=== PATIENT | female | born 1995 | race Caucasian/White ===

== ENCOUNTER 2016-10-30 23:55 | Outpatient (CLI) | payer SELFPAY ==
[~2016-10-30] VITALS: Ht 167.6 cm; Wt 101.2 kg
[2016-10-31 00:36] VITALS: Ht 167.6 cm; Wt 101.2 kg
[2016-10-31 00:38] VITALS: BP 115/62; PULSE 97; RESP 20
[2016-10-31] MEDS ORDERED: FERR325C PO (00:42)
[2016-10-31] MEDS ORDERED: PRENAT PO (00:42)
--- NOTE | 2016-10-31 02:02 | RADRPT ---
PROCEDURE: US OB. CLINICAL INDICATION: Cramping abdominal pain. patient. TECHNIQUE: Multiple sonographic images of the pelvis were obtained. Transvaginal scanning was also performed to evaluate length of the cervix. The images were reviewed on a PACS workstation. COMPARISON: No prior studies are available for comparison. FINDINGS: The cervix is closed with a length of 5.9 cm. There is a single viable intrauterine gestation. Cardiac activity is present with 156 beats per min quileute. There is a breech presentation. Measurements were made in order to determine age. The results are as follows: BPD =6.32 cm. HC =23.3 cm. AC =22.2 cm. FL =4.8 cm. Estimated gestational age of approximately 26 weeks and 0 days. The estimated date of delivery is 02/06/2017. The EFW = 920 g (2 pounds) . Anatomic survey was not performed. The placenta is fundal and grade 1. There is no evidence for an abruption or placenta previa. There is a normal amount of amniotic fluid with an VISH = 11.5. IMPRESSION: Single viable intrauterine gestation of approximately 26 weeks. The estimated date of delivery is 1 . RPTAT: [facility] Physician Kieran Date Time Electronically viewed and signed by Physician Kieran on 10/31/2016 02:02 CHUY/
[2016-10-31 02:16] LABS: ADD SCAN DIFF NO
[2016-10-31 02:18] LABS: BASOPHILS % 0.3 % (0.0-2.0); EOSINOPHILS # 0.1 10^3/ul (0.0-0.5); EOSINOPHILS % 0.8 % (0.0-7.0); HEMATOCRIT 26.5 % (37.0-47.0); HEMOGLOBIN 8.5 g/dl (12.0-16.0); LYMPHOCYTES % 18.9 % (15.0-51.0); MEAN CORPUSCULAR HEMOGLOBIN 25.2 pg (29.0-33.0); MEAN CORPUSCULAR HGB CONC 32.1 g/dl (32.0-37.0); MEAN CORPUSCULAR VOLUME 78.6 fl (82.0-101.0); MEAN PLATELET VOLUME 10.6 fl (7.4-10.4); MONOCYTES % 9.3 % (0.0-11.0); NEUTROPHIL # 7.4 10^3/ul (1.6-7.5); NEUTROPHILS % 70.1 % (39.0-77.0); PLATELET COUNT 271 10^3/UL (140-415); RED BLOOD COUNT 3.37 10^6/ul (4.20-5.40); RED CELL DISTRIBUTION WIDTH 14.3 % (11.5-14.5); WHITE BLOOD COUNT 10.5 10^3/ul (4.8-10.8)
[2016-10-31 02:40] LABS: ADD UMIC YES; UR ASCORBIC ACID NEGATIVE (NEGATIVE); UR BILIRUBIN (Dip) NEGATIVE (NEGATIVE); UR BLOOD (Dip) 1+ mg/dL (NEGATIVE); UR CLARITY CLEAR (CLEAR); UR COLOR COLORLESS (YELLOW); UR GLUCOSE (Dip) NEGATIVE (NEGATIVE); UR KETONES (Dip) NEGATIVE (NEGATIVE); UR LEUKOCYTE ESTERASE (Dip) NEGATIVE Leu/ul (NEGATIVE); UR NITRITE (Dip) NEGATIVE (NEGATIVE); UR RBC 0 /HPF (0-5); UR SPECIFIC GRAVITY (Dip) 1.002 (1.003-1.030); UR TOTAL PROTEIN (Dip) NEGATIVE (NEGATIVE); UR UROBILINOGEN (Dip) NEGATIVE (NEGATIVE)
[2016-10-31 03:05] LABS: BARBITURATES Negative (NEGATIVE); BENZODIAZEPINES Negative (NEGATIVE); CANNABINOIDS Negative (NEGATIVE); COCAINE Negative (NEGATIVE); OPIATES Negative (NEGATIVE)
--- NOTE | 2016-10-31 04:54 | QN ---
Documentation Comment 21 y/o at 22 weeks with c/o low back pain. Patient denies nausea, vomiting , leakage of fluid or vaginal bleeding. Afebrile VSS Abdomen soft NT Strip Appropriate for GA OB sono normal U/A negative WBC normal After rest, patient feels better. Stable D/C home. JONHNY HOWARD MD Oct 31, 2016 04:54
--- NOTE | 2016-10-31 05:52 | TRIAGE ---
OB Triage Datetime Report Generated by CPN: 10/31/2016 05:52 Datetime: 10/31/2016 04:39 Stage of : OB Triage Datetime: 10/31/2016 04:26 Stage of : OB Triage Datetime: 10/31/2016 04:14 Stage of : OB Triage Datetime: 10/31/2016 02:13 Labor Evaluation Frequency: 0 Monitor Mode: External Resting Tone [place]: Relaxed Heart Rate FHR Baseline Rate: 145 Monitor Mode: External US Variability: Moderate 6-25 bpm Accelerations: 10X10 Comments: Appropriate for ga Pain Assessment Pain Scale: 5 Pain Presence: Intermittent Pain Type: Cramping Pain Location: Back Pain Goal: 0 Pain Relief Measures: Comfort Measures Datetime: 10/31/2016 01:05 Stage of : OB Triage Labor Evaluation Frequency: 0 Monitor Mode: External Resting Tone [place]: Relaxed Heart Rate FHR Baseline Rate: 150 Monitor Mode: External US Variability: Moderate 6-25 bpm Accelerations: 10X10 Decelerations: Variable Comments: Appropriate for ga Datetime: 10/31/2016 00:46 Stage of : OB Triage Datetime: 10/31/2016 00:25 Time of Arrival: 10/31/2016 23:58 EGA: 25.5 Arrived By: Stretcher; Ambulance Arrived From: Home Chief Complaint: pressure, back pain, anxiety Movement: Present Contractions: Irregular Time Contractions Began: 10/31/2016 22:00 Rupture of Membranes: Denies Vaginal Bleeding: None Vaginal Discharge: Denies Recent Sexual Intercouse: Yes Abdominal Trauma: Not Applicable Patient Complaints: Cramping; Back Pain Provider Notified: delshad Initial Plan: VS, EFM, CBC, UA, UTOX, EFW, CL, VISH Datetime: 10/31/2016 00:24 Assessment Type: Triage Maternal Assessment Level of Consciousness: Fully Conscious DTR's/Clonus: DTRs 2+; No Clonus Headache: Denies Blurred Vision: No Respiratory Effort: Unlabored Breath Sounds, Left: Clear and Equal Breath Sounds, Right: Clear and Equal Nausea/Vomiting: Hx of Nausea/Vomiting (Annotations: vomiting x 1 this am) RUQ Epigastric Pain: Denies Lower Extremities Edema: None Degree: None Upper Extremities Edema: None Degree: None Facial Edema: None Fall Risk Assessment History of Falling: (0) No Secondary Diagnosis: (0) No Ambulatory Aid: (0) Bedrest/Nurse Assist IV Therapy: (0) No Gait: (0) Normal/Bedrest/Immobile Mental Status: (0) Oriented to Own Ability Fall Score: 0 Fall Risk Score Definition: No Risk: No action required Datetime: 10/31/2016 00:16 Stage of : OB Triage Monitor Mode: External Monitor Mode: External US Datetime: 10/31/2016 00:08 Stage of : OB Triage
== END 2016-10-31 05:03 | disposition home or self-care (01) ==
LOC: OBT 23:55 → L-D 23:55 → OBT 10-31 05:03
PROVIDERS: ATTEND Obstetrics & Gynecology
DX: O26.892 Other specified pregnancy related conditions, second trimester (principal); M54.5 Low back pain; Z3A.22 22 weeks gestation of pregnancy
CPT/HCPCS: 76815; 76817; 80307; 81001; 85025; G0463